=== PATIENT | male | born 1935 | race African-American/Black ===

== ENCOUNTER 2020-08-14 16:37 | Observation (INO) | payer MEDICARE ==
[2020-08-14 18:07] LABS: INR-International Normal Ratio 1.1; PTT 25.6 sec (22.0-33.0); Prothrombin Time 11.6 sec (9.5-12.1)
[2020-08-14] MEDS ORDERED: Ondansetron PF 4 MG/2 ML Vial IVP PRN (19:29)
[2020-08-14] MEDS ORDERED: Calcium Carbonate 500 MG ChewTAB PO PRN (19:29)
[2020-08-14] MEDS ORDERED: Senokot S 8.6-50 MG TAB PO PRN (19:29)
[2020-08-14] MEDS ORDERED: Zolpidem Tartrate 5 MG TAB PO PRN (19:29)
[2020-08-14] MEDS ORDERED: HYDROcodone/Acetaminophen 5/325 mg Tablet PO PRN (19:29)
[2020-08-14] MEDS ORDERED: Acetaminophen 325 MG TAB PO PRN (19:29)
[2020-08-14] MEDS ORDERED: hydrALAZINE 20 MG/ML VIAL SLOW IVP PRN (19:34)
[2020-08-14] MEDS ORDERED: Potassium Chloride 20 MEQ TAB PO SCH (19:45)
[2020-08-14] MEDS ORDERED: Sodium Chloride 0.9% 500 ML IV SCH (19:45)
[2020-08-14] MEDS ORDERED: hydrALAZINE 20 MG/ML VIAL ONE (20:08)
[2020-08-14] MEDS ORDERED: Tamsulosin HCl 0.4 MG CAP PO SCH (21:00)
[2020-08-14 21:31] VITALS: BMI 31.3
[2020-08-14] MEDS ORDERED: Amlodipine 10 MG TAB PO SCH (22:15)
[2020-08-14] MEDS ORDERED: Apixaban 5 MG TAB PO SCH (22:15)
[2020-08-14] MEDS ORDERED: Nitroglycerin 2% Ointment 1 INCH/1 GM Packet TOP SCH (22:15)
[2020-08-14] MEDS: Ferrous Gluconate 324 MG TAB PO SCH (22:16)
[2020-08-15] MEDS ORDERED: Apixaban 5 MG TAB PO SCH ×2 (04:00→09:00)
[2020-08-15 05:15] LABS: Anion Gap 14 mmol/L (10-20); BUN (Urea Nitrogen) 14 mg/dL (8.4-25.7); Calc. Creatinine Clearance 83 mL/min (70-130); Carbon Dioxide 26 mmol/L (23-31); Chloride 106 mmol/L (98-107); Glucose 88 mg/dL (83-110); Potassium 3.2 mmol/L (3.5-5.1); Sodium 143 mmol/L (136-145)
[2020-08-15 05:22] LABS: #Eosinphils 0.1 10x3/uL (0.0-0.5); #Monocytes 0.3 10x3/uL (0.0-1.1); #Neutrophils 1.3 10x3/uL (1.5-8.4); %Basophils 0.4 % (0.0-2.0); %Eosinophils 3.2 % (0.0-6.0); %Lymphocytes 38.1 % (18.0-47.0); %Monocytes 11.5 % (0.0-10.0); %Neutrophils 46.1 % (40.0-75.0); Hemoglobin 10.7 g/dL (13.5-17.5); Mean Corpuscular HGB CONC 31.5 g/dL (32.0-36.0); Mean Corpuscular Hemoglobin 26.2 pg (27.0-33.0); Mean Corpuscular Volume 83.1 fl (81.2-95.1); Mean Platelet Volume 11.7 fl (7.4-10.4); Platelet Count 93 10x3/uL (150-450); RBC Distribution Width 15.7 % (11.5-14.5); Red Blood Cell (RBC) Count 4.09 10x6/uL (4.32-5.72); White Blood Cell (WBC) Count 2.8 10x3/uL (3.5-10.5)
[2020-08-15] MEDS ORDERED: Potassium Chloride 20 MEQ TAB PO SCH (07:30)
[2020-08-15] MEDS: Ferrous Gluconate 324 MG TAB PO SCH (08:31)
[2020-08-15] MEDS ORDERED: Lisinopril 20 MG TAB PO SCH (09:00)
[2020-08-15] MEDS ORDERED: Finasteride 5 MG TAB PO SCH (09:00)
[2020-08-15] MEDS ORDERED: Hydrochlorothiazide 25 MG TAB PO SCH (09:00)
[2020-08-15] MEDS ORDERED: Thiamine 100 MG TAB PO SCH (09:00)
[2020-08-15] MEDS ORDERED: Calcium Carbonate 600 MG + Vit D TAB PO SCH (09:00)
[2020-08-15] MEDS ORDERED: Amlodipine 10 MG TAB PO SCH (09:00)
[2020-08-15] MEDS ORDERED: Folic Acid 1 MG TAB PO SCH (09:00)
[2020-08-15 15:32] LABS: SARS-CoV-2 PCR by NAA Not Detected (NotDetected)
[2020-08-15 18:38] VITALS: BP 162/74; TEMP 98
== END 2020-08-15 18:54 | disposition home or self-care (01) ==
LOC: CSHERS 16:37 → CSHTELE 19:29 → UNDOADMOB 21:30 → CSHTELE 21:30 → INTOOBSV 21:30
PROVIDERS: ADMIT Student in an Organized Health Care Education/Training Program; ATTEND Family Medicine
DX: I26.99 Other pulmonary embolism without acute cor pulmonale (principal); I82.412 Acute embolism and thrombosis of left femoral vein; E87.6 Hypokalemia; I16.0 Hypertensive urgency; N28.9 Disorder of kidney and ureter, unspecified; D69.6 Thrombocytopenia, unspecified; I50.9 Heart failure, unspecified; Z79.899 Other long term (current) drug therapy; Z79.01 Long term (current) use of anticoagulants; Z79.82 Long term (current) use of aspirin; D63.8 Anemia in other chronic diseases classified elsewhere; I51.89 Other ill-defined heart diseases; Z20.822 Contact with and (suspected) exposure to COVID-19
CPT/HCPCS: 71275; 80048; 85025; 85610; 85730; 93005; 93306; 93971; 94760; 96374 ×2; 99285; G0378 ×3; U0003; U0005; 36415; 87635; J0360; J7030